=== PATIENT | female | born 2000 | race Caucasian/White ===

== ENCOUNTER 2024-08-22 04:47 | Observation (INO) | payer SELFPAY ==
--- NOTE | 2024-08-22 06:35 | OBADM ---
This patient, Flores Roe, admitted to the OB room Labor/Delivery/Recovery 107 for observation. Patient/family oriented to hospital policies and general routines including ID bracelet, bed and alarms, visiting hours, pain management, procedures, bathroom and other care routines, personal items, smoking policy, room service/diet, and visiting hours. Patient/Family are encouraged to report perceived risks to care and to ask questions if they do not understand what they are told or what they should do.
--- OUTSIDE RECORDS SUMMARY | 2024-08-22 06:35 | XMS_ITS | Clinical Summary ---
Author Organization [facility] Address [facility] [place] [address] Care Team Providers Care Trench Digging Machine Operator Name Role Phone Unavailable Primary Care Provider Unavailabl e Social History Tobacco Use Types Packs/Day Years Used Date Smoking Tobacco: Never Assessed Comments Unknown Sex and Gender Information Value Date Recorded Sex Assigned at Not on file Legal Sex Female 5:18 PM CDT Gender Identity Not on file Sexual Orientation Not on file Plan of Treatment Health Maintenance Due Date Last Done Comments Cervical Cancer Screening Pa p Smear (Age 21 to 29) Every 3 Years 1998 Cervical Cancer Screening 1998 Annual Physical 2001 HPV Vaccines (1 - 3-dose series) 2013 Hepatitis C 2016 DTaP, Tdap and Td Vaccines ( 1 - Tdap) 2017 Hepatitis B Vaccines (1 of 3 - 19+ 3-dose series) 2017 COVID-19 Vaccine (2023-2 5 season) 2023 Meningococcal B Vaccine Aged Out No l onger eligible based on patient's age to complete this topic Meningococcal Vaccine Aged Out No kvng arlette eligible based on patient's age to complete this topic Pneumococcal Vaccine: Pediat rics (0 to 5 Years) and At-Risk Patients (6 to 49 Years) Aged Out No longer eligible b ased on patient's age to complete this topic RSV Immunizations Under 20 Months Aged Out No longer eligible based on patient's age to complete this topic
--- OUTSIDE RECORDS SUMMARY | 2024-08-22 06:35 | XMS_ITS | Clinical Summary ---
Author Organization [address] Address [address] [place] [address] Care Team Providers Care Skin Fitter Name Role Phone No, Physician Primary Care Provider [phone] Allergies Active Allergy Reactions Criticality Noted Date Comments Amoxicillin-Pot Clavulanate Rash Medium 09/16/19 22 Medications No known medications Active Problems Estimated Date of Delivery Comme nts Yes 09/08/2024 No known active problems Surgical History Surgery Date Site/Laterality Comments NO PAST SURGERIES Medical History Medical History Date Comments No pertinent past medical history Family History Relation Name Status Comments Brother Alive Father Alive Mother Alive Sister Alive Social History Tobacco Use Types Packs/Day Years Used Date Smoking Tobacco: Former Cigarettes Smokeless Tobacco: Never Estimated Date of Delivery Comme nts Yes 09/08/2024 Sex and Gender Information Value Date Recorded Sex Assigned at Not on file Legal Sex Female 4:42 PM LEATHER GOODS MAKER Gender Identity Not on file Sexual Orientation Not on file Obstetrics History Para Term AB IAB SAB Ectopic Multiple Livin g Live Births 1 Date Outcome GA Total Labor Labor/2nd/3rd Weight Sex Type Anes PTL Seema A1 A5 Name Clin Current Last Filed Vital Signs Vital Sign Reading Time Taken Comments Blood Pressure 100/56 04/09/2024 12:09 PM LEATHER GOODS MAKER Pulse 98 04/09/2024 12:09 PM LEATHER GOODS MAKER Temperature 36.9 C (98.5 F) 04/09/2024 12:09 PM LEATHER GOODS MAKER Respiratory Rate 18 04/09/2024 12:09 PM LEATHER GOODS MAKER Oxygen Saturation 98% 04/09/2024 12:09 PM LEATHER GOODS MAKER Inhaled Oxygen Concentration - - Weight 54 kg (119 lb) 04/09/2024 12:09 PM LEATHER GOODS MAKER Height 172.7 cm (5' 8) 04/09/2024 12:09 PM LEATHER GOODS MAKER Body Mass Index 18.09 04/09/2024 12:09 PM LEATHER GOODS MAKER Plan of Treatment Health Maintenance Due Date Last Done Comments Cervical Cancer Screening 1998 Depression Screening 1998 Hepatitis C Screening 1998 Regular Well Visit/Exam 18-64 2016 DTaP/Tdap/Td Vaccine (8 - Td or Tdap) 10/15/2020 10/15/2010, 09/14/2010, 09/30/2004, Additional history exists Influenza Vaccine (Season Ended) 2024 03/08/2015, 11/23/2011, 02/17/2008, Additional history exists Hepatitis B Screening Completed 09/10/1999 , 04/26/1999, 01/21/1999 Pneumococcal vaccine <65 Completed 07/02/2000, 04/12 Varicella Vaccines Completed 08/31/2006, 07/02/2000 HPV Vaccines Completed 08/10/2009, 09/12, 07/27/2008 Insurance [employer] [place] [employer] [facility] Member Subscriber Plan / Payer (Ef fective 2023-Present) Name:Flores Roe Relation to Subscriber:Self Name:Flores Roe Payer ID:[id number] (NAIC) Type: RENATO Address: [facility] [id number] [id number] Care Teams Skin Fitter Relationship Specialty Start Date End Date No, Physician PCP - General 11/19/20
--- OUTSIDE RECORDS SUMMARY | 2024-08-22 06:35 | XMS_ITS | Clinical Summary ---
Author Organization [facility] Address [address] [place] [address] Phone Care Team Providers Care Food Services Director Name Role Phone Shadia Bolden APRGREG Jimenez Primary Care Provider [phone] Allergies Active Allergy Reactions Criticality Noted Date Comments Amoxicillin-Pot Clavulanate Unknown 08/19/19 23 Medications * This document contains information received from the source organization and may not represent a complete record from that organization. 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/18/2022 Constipation 08/18/2022 Insomnia 08/18/2022 Chronic back pain 08/18/2022 Vapes nicotine containing substance 08/18/2022 Anxiety 08/18/2022 Depression 08/18/2022 Chronic pelvic pain in female 08/18/2022 Resolved Problems Problem Noted Date Diagnosed Date Resolved Date Alcohol withdrawal 08/18/2022 Encounters Date Type Department Care Team Description 07/31/2024 3:46 PM CDT - 07/31/2024 11:59 PM CDT Hospital [facility] Ultrasound [address] [place] [address] Florentino Segovia MD Discharge Disposition: Discharged to home or Selfcare 07/31/2024 Travel 06/30/2024 Travel 06/09/2024 Transcribe Orders [facility] Central Scheduling [address] [place] [address] Florentino Segovia MD Uterine size-date discrepancy in third trimester (Primary Dx) from Last 3 Months Family History Medical History Relation Name Comments Stroke Maternal Grandfather Cancer Maternal Grandmother Diabetes Maternal Grandmother Relation Name Status Comments Maternal Grandfather Maternal Grandmother Social History Tobacco Use Types Packs/Day Years Used Date Smoking Tobacco: Never Passive Smoke Exposure: Never Smokeless Tobacco: Never Tobacco Cessation:Counseling Given: Not Answered Comments:Vapes Alcohol Use Standard Drinks/Week Comments Not Currently 0 (1 standard drink = 0.6 oz pur e alcohol) 1/5 of vodka daily Comments Unknown Sex and Gender Information Value Date Recorded Sex Assigned at Not on file Legal Sex Female 8:38 PM CDT Gender Identity Not on file Sexual Orientation Not on file Last Filed Vital Signs Vital Sign Reading Time Taken Comments Blood Pressure 104/66 11/04/2023 11:48 AM CDT Pulse 65 11/04/2023 11:48 AM CDT Temperature 36.5 C (97.7 F) 11/04/2023 11:48 AM CDT Respiratory Rate 18 11/04/2023 11:48 AM CDT Oxygen Saturation 100% 11/04/2023 11:48 AM CDT Inhaled Oxygen Concentration - - Weight 49.9 kg (110 lb) 11/04/2023 11:48 AM CDT Height 167.6 cm (5' 6) 11/04/2023 11:48 AM CDT Body Mass Index 17.75 11/04/2023 11:48 AM CDT Plan of Treatment Health Maintenance Due Date Last Done Comments Hepatitis C Virus (HCV) Screening 1998 Pap Smear 11/22/2019 SARS-COV-2 Immunization ( season) 2023 Influenza Immunization (#1) 10/13/202402/13, 11/23/2011, 02/17/2008, Additional history exists Respiratory Syncytial Virus (RSV) Immunization (Adult) (1 - 1-dose 75+ series) 2073 Hepatitis B Immunization Completed 000, 04/26/1999, 01/21/1999 Pneumococcal Immunization Combined Aged Out 07/02/2000, 04/25/2000 No longer eligibl e based on patient's age to complete this topic Human Papillomavirus (HPV) Immunization Completed 08/10/2009, 09/28/2008, 07/27/2008 DTaP/Tdap/Td Immunization Discontinued 2010, 09/14/2010, 09/30/2004, Additional history exists TdaP Immunization Completed 10/15/2010, 09/14/2010 Meningococcal Immunization (ACWY) Completed 04/20/2015, 09/14/2010 Rotavirus Immunization Aged Out No lo nger eligible based on patient's age to complete this topic Procedures Procedure Name Priority Date/Time Associated Diagnosis Comments US PREG UTERUS, LMT ONE OR MORE FETUS Routine 07/31/2024 4:27 PM CDT Uterine size-date discrepancy in third trimester from Last 3 Months Results * US PREG UTERUS, LMT ONE OR MORE FETUS (07/31/2024 4:27 PM CDT) Anatomical Region Laterality Modality OB N/A Ultrasound 08/18/2024 9:23 AM CDT Impressions 08/18/2024 9:26 AM CDT IMPRESSION: 1. Single live intrauterine gestation estimated at 33 weeks 3 days by this ultrasound. 2. Estimated weight at the 20th percentile by LMP. 3. heart rate of 156 bpm. 4. Single loop nuchal cord noted. 5. measurements as above. Abdominal circumference measuring at 34 weeks 5 days. 6. Cervix is not well seen due to head shadowing. Narrative 08/18/2024 9:26 AM CDT EXAM DESCRIPTION: US PREG UTERUS, LMT ONE OR MORE FETUS REASON FOR STUDY: Size date discrepancy. 3rd trimester. uterus. TECHNIQUE: Limited transabdominal obstetric ultrasound was performed. COMPARISON: OB ultrasound 04/19/2024 FINDINGS: number: single Presentation: Cephalic Gestational age by this ultrasound: 33 weeks 3 days , EDC 09/15/2024 Clinical gestation: 34 weeks 3 days , EDC 09/08/2024 Estimated weight: 2208 g, +/-322 g; 4 pounds 14 ounces, +/-11 ounces , Percentile 20th by LMP Placenta location: Anterior Placenta-previa: no Cervical length: Not well seen heart rate: 156 bpm Amniotic fluid index: 9.9 cm Limited anatomic survey shows a normal four-chamber heart. Normal three-vessel cord noted. Low resistance waveforms in the umbilical artery noted. There is an nuchal cord noted. measurements: Biparietal diameter: 8.3 cm ( 33 weeks 3 days ) Head circumference: 30.15 cm ( 33 weeks 4 days ) Abdominal circumference: 30.64 cm ( 34 weeks 5 days ) Femur length: 6.05 cm ( 31 weeks 4 days ) Ratios: FL/AC: 20 (20-24) HC/AC: 0.98 ( 0.96 - 1.11 ) Maternal: None THIS IS AN ELECTRONICALLY VERIFIED FINAL REPORT 08/18/2024 9:23 AM - Electronically signed by Darion Rossi M.D. LB: KEISHA Report ID: [id number] Reading Location: [place] [address] Procedure Note Darion Rossi MD - 08/18/2024 EXAM DESCRIPTION: US PREG UTERUS, LMT ONE OR MORE FETUS REASON FOR STUDY: Size date discrepancy. 3rd trimester. uterus. TECHNIQUE: Limited transabdominal obstetric ultrasound was performed. COMPARISON: OB ultrasound 04/19/2024 FINDINGS: number: single Presentation: Cephalic Gestational age by this ultrasound: 33 weeks 3 days , EDC 09/15/2024 Clinical gestation: 34 weeks 3 days , EDC 09/08/2024 Estimated weight: 2208 g, +/-322 g; 4 pounds 14 ounces, +/-11 ounces , Percentile 20th by LMP Placenta location: Anterior Placenta-previa: no Cervical length: Not well seen heart rate: 156 bpm Amniotic fluid index: 9.9 cm Limited anatomic survey shows a normal four-chamber heart. Normal three-vessel cord noted. Low resistance waveforms in the umbilical artery noted. There is an nuchal cord noted. measurements: Biparietal diameter: 8.3 cm ( 33 weeks 3 days ) Head circumference: 30.15 cm ( 33 weeks 4 days ) Abdominal circumference: 30.64 cm ( 34 weeks 5 days ) Femur length: 6.05 cm ( 31 weeks 4 days ) Ratios: FL/AC: 20 (20-24) HC/AC: 0.98 ( 0.96 - 1.11 ) Maternal: None THIS IS AN ELECTRONICALLY VERIFIED FINAL REPORT 08/18/2024 9:23 AM - Electronically signed by Darion Rossi M.D. LB: KEISHA Report ID: [id number] Reading Location: [place] [address] IMPRESSION: 1. Single live intrauterine gestation estimated at 33 weeks 3 days by this ultrasound. 2. Estimated weight at the 20th percentile by LMP. 3. heart rate of 156 bpm. 4. Single loop nuchal cord noted. 5. measurements as above. Abdominal circumference measuring at 34 weeks 5 days. 6. Cervix is not well seen due to head shadowing. Florentino Segovia MD [facility] OB Final Result from Last 3 Months Insurance [facility] [place] [place] [id number] Advance Directives * Full Code (Latest Code Status on File) Date Activated Date Inactivated Comments 12/04/2022 2:57 PM 12/07/2022 1:50 PM CPR-Full T reatment: FULL ARREST: Attempt Resuscitation/CPR wit intubation and mechanical ventilation. PRE-ARREST: Use entire range of life support measures to stabilize the patient. Care Teams Food Services Director Relationship Specialty Start Date End Date Shadia Bolden APRN, CNP [address] [place] [address] PCP - General Family Medicine 04/14/22
--- OUTSIDE RECORDS SUMMARY | 2024-08-22 06:35 | XMS_ITS | Referral Summary ---
Author Organization [facility] [address] Address [address] [place] [address] Care Team Providers Care Editing Intern Name Role Phone No, Physician Primary Care Provider [phone] Allergies Active Allergy Reactions Criticality Noted Date Comments Amoxicillin-Pot Clavulanate Rash Medium 09/16/19 22 Medications No known medications Active Problems Estimated Date of Delivery Comme nts Yes 09/08/2024 No known active problems Social History Tobacco Use Types Packs/Day Years Used Date Smoking Tobacco: Former Cigarettes Smokeless Tobacco: Never Estimated Date of Delivery Comme nts Yes 09/08/2024 Sex and Gender Information Value Date Recorded Sex Assigned at Not on file Legal Sex Female 4:42 PM AWNING SPREADER Gender Identity Not on file Sexual Orientation Not on file Last Filed Vital Signs Vital Sign Reading Time Taken Comments Blood Pressure 100/56 04/09/2024 12:09 PM AWNING SPREADER Pulse 98 04/09/2024 12:09 PM AWNING SPREADER Temperature 36.9 C (98.5 F) 04/09/2024 12:09 PM AWNING SPREADER Respiratory Rate 18 04/09/2024 12:09 PM AWNING SPREADER Oxygen Saturation 98% 04/09/2024 12:09 PM AWNING SPREADER Inhaled Oxygen Concentration - - Weight 54 kg (119 lb) 04/09/2024 12:09 PM AWNING SPREADER Height 172.7 cm (5' 8) 04/09/2024 12:09 PM AWNING SPREADER Body Mass Index 18.09 04/09/2024 12:09 PM AWNING SPREADER Plan of Treatment Not on file Insurance [facility] [place] [address] [employer] Care Teams Editing Intern Relationship Specialty Start Date End Date No, Physician PCP - General 11/19/20
--- NOTE | 2024-08-28 18:23 | PM.OBTRLD ---
OB - Triage/Final Diagnosis Visit Information Comments/Additional reasons for admission: I have assessed the risk for this patient, Flores Roe, and determined that she would benefit from observation care. Final Diagnosis (1) False labor: Code(s): O47.9 - False labor, unspecified Status: Acute
== END 2024-08-22 06:05 | disposition home or self-care (01) ==
PROVIDERS: Admitting Provider Obstetrics & Gynecology; Visit Provider Obstetrics & Gynecology
DX: O47.1 False labor at or after 37 completed weeks of gestation (principal); Z3A.37 37 weeks gestation of pregnancy
CPT/HCPCS: G0378; G0379